=== PATIENT | male | born 1955 | race Caucasian/White ===

== ENCOUNTER → 2018-12-27 08:36 | Outpatient (CLI) | payer BC ==
--- NOTE | 2018-12-30 09:04 | EC ---
PATIENT:ROMI DO DATE OF SERVICE: 12/27/18 SEX: M MEDICAL RECORD: [id number] DATE OF : 53 LOCATION:[facility] AGE OF PATIENT: 63 ADMISSION DATE: 12/27/18 REFERRING PHYSICIAN: INTERPRETING PHYSICIAN: NAHUN HUGHES MD ECHOCARDIOGRAM REPORT ECHO CHARGES 4 ECHO COMPLETE Date: 12/27/18 CLINICAL DIAGNOSIS: HX OF CARDIOMYOPATHY, MR.TR AFIB ECHOCARDIOGRAPHIC MEASUREMENTS (adult normal given) AC root (d.<3.7cm) 4.3 cm LV Septum d (<1.2 cm> 1.6 cm Valve Excursion 1.9 cm LV Septum (systole) 1.8 cm Left Atria (s.<4.0cm> 5.0 cm LVPW d(<1.2cm) 1.3 cm RV (d.<2.3cm) 4.6 cm LVPW (sytole) 1.8 cm LV diastole(<5.6CM) 5.4 cm MV E-F(>70mm/sec) cm LV systole 3.8 cm LVOT Diameter 2.1 cm MV exc.(>10mm) 1.8 cm Est.ejection fraction (50-75%) % DOPPLER: LVIT cm/sec A cm/sec E 96.0 cm/sec LA cm/sec RVSP 28 mmHg LVOT 73 cm/sec AOP1/2T m/s Asc. Ao 118 cm/sec RVOT 56 cm/sec RA cm/sec PA 85 cm/sec AV Gradient Peak 5.56 mmHg AV Mean 2.84 mmHg AV Area 2.0 cm MV Gradient Peak 4.39 mmHg MV Mean 1.71 mmHg MV Area cm COMMENTS: Bolt Maker: 2 DENNIS FLOREZ Fitting Room Supervisor: 3 Dr. Montgomery TAPE# pacs Pericardial Effusion N DATE OF SERVICE: Adequate 2D, color flow imaging, spectral Doppler, and M-Mode LVH is present. LV internal dimensions are normal. Wall motion is normal. EF is greater than or equal to 55%. Aortic valve is tricuspid. No evidence of stenosis by Doppler interrogation. Left atrium is dilated at 5 cm. Mitral valve shows no prolapse. Mild MR. Right-sided chambers are grossly normal. [id number] TR by color-flow imaging. ECHOCARDIOGRAM REPORT [id number] ROMI DO TRANSINT:[id number] Voice Confirmation ID: [id number] DOCUMENT ID: [id number] NAHUN HUGHES MD at 0904 CC: [id number] DICTATION DATE: 12/29/18 1019 GIS PHYSICAL SCIENTIST: 12/29/18 1204 DEP CLI 12/27/18 [place] [id number] [place] [id number]
== END | disposition home or self-care (01) ==
LOC: D.HCCECHO 08:36
PROVIDERS: ATTEND Internal Medicine Interventional Cardiology
DX: I42.9 Cardiomyopathy, unspecified (principal)